=== PATIENT | male | born 1945 | race Caucasian/White ===

== ENCOUNTER → 2017-11-21 | Outpatient (CLI) | payer OTHER ==
[~2017-11-21] MED LIST: ARTIFICIAL TEAR15 M1 OPHTHALMIC; ASPIR 8181 MG PO; ASPIRIN325 PO; B12INJ PO; BENTYL 10 MG CA10 M1 PO; COLACE100 MG PO; COPPER2 M1 PO; DOXYCYCLINE 10100 MG PO; ELIQUIS5 MG PO; FLAGYL500 MG PO; FLEXERIL PO; FOLIC ACID1 MG PO; HYDROCODON-ACE1 EA11 PO; HYDROCODONE; HYDROCODONE-AP1 EAC6 PO; KEFLEX500 MG PO; KLOR-CON 1010 MEQ PO; LASIX 20 MG TAB20 MG PO; LASIX 40 MG TAB40 M2 PO; LEVOTHYROXINE0.05 MG PO; LISINOPRIL10 MG PO; LOPRESSOR25 PO; LOPRESSOR50 PO; MAGNESIUM OXID400 MG PO; MAGOX 400400 MG PO; MINOCIN100 MG PO; NORCO 5-325 TA1 EAC1 PO; NORCO 5-325 TA1 EACH PO; OXYCODONE HCL 55 MG PO; PERCOCET PO; POTASSIUM20 PO; PROPAFENONE 15150 MG PO; PROTONIX40 M1 PO; RECLAST 55 MG/100 M IV; REQUIP 1 MG TABL1 M1 PO; TRAMADOL 50 MG50 MG PO; TRAMADOL200 MG PO; ULORIC40 MG PO; ULTRAM 50MG TAB50 MG PO; VITAMIN B-122000 MC1 PO; VITAMIN B-12500 MCG PO; XARELTO10 MG PO
== END ==
LOC: M.WC 09:50
DX: L97.211 Non-pressure chronic ulcer of right calf limited to breakdown of skin (principal); I89.0 Lymphedema, not elsewhere classified; E43 Unspecified severe protein-calorie malnutrition; I11.0 Hypertensive heart disease with heart failure; I50.9 Heart failure, unspecified; K21.9 Gastro-esophageal reflux disease without esophagitis; I48.91 Unspecified atrial fibrillation; Z87.891 Personal history of nicotine dependence

== ENCOUNTER → 2017-11-28 | Outpatient (CLI) | payer OTHER | LOC: M.WC 00:57 | DX: L97.211 Non-pressure chronic ulcer of right calf limited to breakdown of skin (principal); L97.221 Non-pressure chronic ulcer of left calf limited to breakdown of skin; E43 Unspecified severe protein-calorie malnutrition; I89.0 Lymphedema, not elsewhere classified; K21.9 Gastro-esophageal reflux disease without esophagitis; I48.91 Unspecified atrial fibrillation; I50.9 Heart failure, unspecified; Z87.891 Personal history of nicotine dependence ==